=== PATIENT | male | born 1980 | race Caucasian/White ===

== ENCOUNTER → 2017-11-01 13:48 | Outpatient (CLI) | payer BC ==
[2016-02-11 07:13] VITALS: BMI 33.7
[~2017-11-01 13:48] MED LIST: CLARITIN 10 MG10 MG PO; FLUTICASONE PRO16 GM NASAL; HYDROCODONE-APA1 TAB PO; SINGULAIR10 MG PO; VENTOLIN HFA18 GM INH; ZOVIRAX800 MG PO
== END | disposition home or self-care (01) ==
LOC: D.MRI 13:48
DX: M54.16 Radiculopathy, lumbar region (principal)